=== PATIENT | female | born 1970 | race Caucasian/White ===

== ENCOUNTER 2019-07-15 22:27 | Emergency (ER) | payer MEDICAID ==
[~2019-07-15] VITALS: Ht 152.4 cm; Wt 65.8 kg
[2019-07-15] MEDS ORDERED: ULTRAM50 MG PO (23:04)
[2019-07-15] MEDS ORDERED: PROZAC40 MG PO (23:05)
[2019-07-15] MEDS ORDERED: TIZANIDINE HCL2 MG PO (23:05)
== END 2019-07-16 00:30 | disposition home or self-care (01) ==
LOC: ED 22:27
DX: K64.8 Other hemorrhoids (principal); Z87.448 Personal history of other diseases of urinary system; Z87.891 Personal history of nicotine dependence; Z91.030 Bee allergy status; Z91.040 Latex allergy status; Z79.899 Other long term (current) drug therapy
CPT/HCPCS: 80053; 81001; 84703; 85025; 96360; 99284-25; J7030

== ENCOUNTER 2019-10-10 12:40 | Emergency (ER) | payer MEDICAID ==
[~2019-10-10] VITALS: Ht 152.4 cm; Wt 71.7 kg
[~2019-10-10 12:40] MED LIST: PROZAC40 MG PO; TIZANIDINE HCL2 MG PO; ULTRAM50 MG PO
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
[2019-10-10] MEDS ORDERED: GABAPENTIN600 MG PO (12:58)
[2019-10-10] MEDS ORDERED: PRAZOSIN HCL1 MG PO (12:59)
[2019-10-10] MEDS ORDERED: FEOSOL325 MG PO (16:13)
== END 2019-10-10 16:26 | disposition home or self-care (01) ==
LOC: ED 12:40
DX: R31.9 Hematuria, unspecified (principal); D50.9 Iron deficiency anemia, unspecified; Z91.030 Bee allergy status; Z91.018 Allergy to other foods; Z91.040 Latex allergy status; Z79.899 Other long term (current) drug therapy
CPT/HCPCS: 80053; 81001; 85025; 99284